=== PATIENT | female | born 1995 | race Caucasian/White ===

== ENCOUNTER 2017-10-29 19:50 | Emergency (ER) | payer OTHER ==
[2017-10-29 23:49] LABS: URINE BLOOD (Dip) POC Trace-lysed (NEGATIVE); URINE GLUCOSE (Dip) POC Negative (NEGATIVE); URINE KETONES (Dip) POC Trace (NEGATIVE); URINE LEUKOCYTE EST (Dip) POC Trace (NEGATIVE); URINE NITRITE (Dip) POC Negative (NEGATIVE); URINE TOTAL PROTEIN POC 1+ (NEGATIVE)
[2017-10-29 23:49] LABS: URINE PH (Dip) POC 6.5 (5.0-8.5)
== END 2017-10-30 00:58 | disposition home or self-care (01) ==
LOC: FTE 19:50
DX: M54.5 Low back pain (principal); N30.00 Acute cystitis without hematuria
CPT/HCPCS: 72131; 81003; 99284-25

== ENCOUNTER 2018-07-22 22:15 | Emergency (ER) | payer OTHER ==
[2018-07-23 00:19] LABS: URINE BLOOD (Dip) POC Negative (NEGATIVE); URINE GLUCOSE (Dip) POC Negative (NEGATIVE); URINE KETONES (Dip) POC Negative (NEGATIVE); URINE LEUKOCYTE EST (Dip) POC 1+ (NEGATIVE); URINE NITRITE (Dip) POC Negative (NEGATIVE); URINE TOTAL PROTEIN POC Negative (NEGATIVE)
== END 2018-07-23 00:53 | disposition home or self-care (01) ==
LOC: FTE 22:15
DX: N39.0 Urinary tract infection, site not specified (principal)
CPT/HCPCS: 81003; 99283

== ENCOUNTER 2019-06-06 19:52 | Emergency (ER) | payer OTHER | END 2019-06-06 21:24 | disposition home or self-care (01) | LOC: FTE 19:52 | DX: K64.9 Unspecified hemorrhoids (principal); J45.909 Unspecified asthma, uncomplicated | CPT/HCPCS: 99284; Z7502 ==